=== PATIENT | female | born 1935 | race Caucasian/White ===

== ENCOUNTER 2024-08-15 05:39 | Inpatient (IN) | payer OTHER ==
[~2024-08-15] VITALS: Ht 152.4 cm; Wt 52.2 kg
[2024-08-15] MEDS ORDERED: VALSARTAN-HCTZ1 EACH PO (06:16)
[2024-08-15] MEDS ORDERED: SYNTHROID88 MCG PO (06:16)
[2024-08-15] MEDS ORDERED: 0.9 % SODIUM CHLORIDE 1,000 ML IV STA (06:57)
[2024-08-15] MEDS ORDERED: PROMETHAZINE HCL 50 MG/ML AMPUL IM STA (06:58)
[2024-08-15] MEDS ORDERED: FAMOtidine 10 MG/ML (4ML VIAL) IV PUSH STA (06:58)
[2024-08-15] MEDS ORDERED: PROMETHAZINE HCL 50 MG/ML AMPUL IM ONE (07:16)
[2024-08-15] MEDS ORDERED: FAMOTIDINE/PF 20 MG/2 ML VIAL ONE ×2 (07:16→20:43)
[2024-08-15 10:37] LABS: BILIRUBIN TOTAL 0.71 mg/dL (0.3-1.2); CALCIUM 7.9 mg/dL (8.5-10.1); CREATININE SERUM 0.71 mg/dL (0.55-1.02); GFR 77.87; GLOBULINA 3.9 G/DL (2.4-3.5); POTASSIUM 3.85 mEq/L (3.5-5.1); TOTAL PROTEIN 6.9 gm/dL (6.4-8.2)
[2024-08-15 10:40] LABS: HEMATOCRIT 35.6 % (36.0-45.00); HEMOGLOBIN 12.4 g/dL (12.0-15.00); MEAN CELL VOLUME 91.4 fL (80.00-100.00); MEAN CORPUSCULAR HEMOGLOBIN 31.8 pg (27.00-32.0); MEAN CORPUSCULAR HGB CONC 34.7 g/dl (32.0-36.0); PLATELET COUNT 173 K/uL (150-450); RED BLOOD COUNT 3.89 M/uL (4.00-6.00)
[2024-08-15 12:11] LABS: PH,URINE 6.5 (5.0-8.0); URINE APPEARANCE Clear; URINE BILIRRUBIN Negative (NEGATIVE); URINE BLOOD Negative; URINE COLOR Yellow; URINE GLUCOSE Negative (NEGATIVE); URINE KETONE Negative (NEGATIVE); URINE LEUKOCYTE Negative; URINE NITRATE Negative; URINE PROTEIN Negative (NEGATIVE); URINE UROBILINOGEN 0.2 E.U./dl
[2024-08-15 12:15] LABS: URINE BACTERIA 152.9 uL (0.0-1933); URINE EPITHELIAL CELLS 8.2 uL (0.0-38.8); URINE RBC 2.2 uL (0.0-20.8)
[2024-08-15] MEDS ORDERED: LORazepam 2 MG/ML VIAL ONE (15:41)
[2024-08-15] MEDS ORDERED: LORazepam 2 MG/ML VIAL IM ONE (15:45)
[2024-08-15] MEDS ORDERED: 0.9 % SODIUM CHLORIDE 1,000 ML IV SCH (18:45)
[2024-08-15] MEDS ORDERED: DEXTROSE 50 % IN WATER 0.5 G/ML DISP.SYRIN IV PRN (18:45)
[2024-08-15] MEDS ORDERED: INSULIN LISPRO 1,000 UNIT/10 ML UNITS SUBCUTANEO PRN (18:45)
[2024-08-15] MEDS ORDERED: ONDANSETRON HCL 4 MG in DEXTROSE 5 % IN WATER 50 ML IV SCH (18:53)
[2024-08-15] MEDS ORDERED: ENALAPRILAT DIHYDRATE 1.25 MG/ML VIAL IV PRN (19:00)
[2024-08-15] MEDS ORDERED: ACETAMINOPHEN 500 MG GEL..CAP PO PRN (19:00)
[2024-08-15] MEDS ORDERED: KETOROLAC TROMETHAMINE 30 MG VIAL IV PRN (19:00)
[2024-08-15 20:23] LABS: CREATININE SERUM 0.8 mg/dL (0.55-1.02); GFR 67.85; POTASSIUM 3.46 mEq/L (3.5-5.1)
[2024-08-15 20:28] LABS: CKMB 1.3 NG/ML (0.5-3.6)
[2024-08-15] MEDS ORDERED: ONDANSETRON HCL 2 MG/ML VIAL ONE (20:42)
[2024-08-15] MEDS ORDERED: FAMOTIDINE/PF 20 MG in 0.9 % SODIUM CHLORIDE 8 ML IV PUSH SCH (21:00)
[2024-08-15 22:32] VITALS: BP 138/76; O2SAT 91
[2024-08-16] MEDS ORDERED: ONDANSETRON HCL 2 MG/ML VIAL ONE (00:14)
[2024-08-16 01:56] VITALS: BP 134/55; O2SAT 96
[2024-08-16] MEDS ORDERED: LEVOTHYROXINE SODIUM 88 MCG TABLET PO SCH (06:00)
[2024-08-16 07:43] LABS: INR 1.07; PARTIAL THROMBOPLASTIN TIME 26.2 SECONDS (22.0-34.0); PROTHROMBIN TIME 11.6 SECONDS (9.0-11.5)
[2024-08-16 07:46] LABS: ALBUMIN 2.9 gm/dL (3.4-5.0); BILIRUBIN TOTAL 0.79 mg/dL (0.3-1.2); BILIRUBIN,CONJUGATED 0.25 mg/dL (0.0-0.2); BILIRUBIN,UNCONJUGATED 0.54 mg/dL (0.0-0.6); CALCIUM 7.9 mg/dL (8.5-10.1); CHOL HDL RATIO 2.6 (0-5.0); CREATININE SERUM 0.84 mg/dL (0.55-1.02); GFR 64.13; GLOBULINA 3.5 G/DL (2.4-3.5); POTASSIUM 3.63 mEq/L (3.5-5.1); TOTAL PROTEIN 6.4 gm/dL (6.4-8.2)
[2024-08-16 07:49] LABS: CKMB 1.3 NG/ML (0.5-3.6)
[2024-08-16 08:11] LABS: HEMATOCRIT 34.5 % (36.0-45.00); MEAN CELL VOLUME 91.9 fL (80.00-100.00); MEAN CORPUSCULAR HEMOGLOBIN 31.9 pg (27.00-32.0); MEAN CORPUSCULAR HGB CONC 34.7 g/dl (32.0-36.0); PLATELET COUNT 166 K/uL (150-450); RED BLOOD COUNT 3.75 M/uL (4.00-6.00); RED CELL DISTRIBUTION WIDTH 14.5 % (11.5-14.5)
[2024-08-16 08:35] LABS: C-REACTIVE PROTEIN 1.43 MG/DL (0.00-0.29)
[2024-08-16 08:37] LABS: ERYTHROCYTE SEDIMENTATION RATE 58 mm/hr
[2024-08-16 08:49] VITALS: BP 114/57; O2SAT 98
[2024-08-16 13:03] LABS: PH,URINE 6.5 (5.0-8.0); URINE APPEARANCE Clear; URINE BILIRRUBIN Negative (NEGATIVE); URINE BLOOD Negative; URINE COLOR Yellow; URINE GLUCOSE Negative (NEGATIVE); URINE KETONE Negative (NEGATIVE); URINE LEUKOCYTE Negative; URINE NITRATE Negative; URINE PROTEIN Negative (NEGATIVE); URINE UROBILINOGEN 0.2 E.U./dl
[2024-08-16 13:05] LABS: URINE BACTERIA 26.8 uL (0.0-1933); URINE EPITHELIAL CELLS 7.2 uL (0.0-38.8); URINE WBC 7.5 uL (0.0-23.2)
[2024-08-16 13:15] LABS: URINE RBC 1.4 uL (0.0-20.8)
[2024-08-16 13:40] LABS: CKMB 1.4 NG/ML (0.5-3.6)
[2024-08-16 17:28] VITALS: BP 113/60; O2SAT 95
[2024-08-16] MEDS ORDERED: PIPERACILLIN/TAZOBACTAM SODIUM 3.375 GM in 0.9 % SODIUM CHLORIDE 100 ML IV SCH (18:00)
[2024-08-17 01:22] VITALS: BP 151/66; O2SAT 96
[2024-08-17 07:22] LABS: CALCIUM 7.4 mg/dL (8.5-10.1); CREATININE SERUM 0.73 mg/dL (0.55-1.02); GFR 75.41; POTASSIUM 3.57 mEq/L (3.5-5.1)
[2024-08-17 08:21] VITALS: BP 161/73
== END 2024-08-17 09:10 | disposition home or self-care (01) | DRG 641 ==
LOC: ER 05:41 → MEDI 19:52
PROVIDERS: General Practice; Internal Medicine; ADMIT Internal Medicine; ATTEND Internal Medicine
PROC: 4A12X4Z Monitoring of Cardiac Electrical Activity, External Approach (ICD-10-PCS; principal; 2024-08-15)
DX: E86.0 Dehydration (principal); E87.1 Hypo-osmolality and hyponatremia; R41.82 Altered mental status, unspecified; I10 Essential (primary) hypertension; E03.9 Hypothyroidism, unspecified